=== PATIENT | male | born 1980 | race Caucasian/White ===

== ENCOUNTER 2017-04-24 20:40 | Emergency (ER) | payer BC ==
[~2017-04-24] VITALS: Ht 190.5 cm; Wt 170.6 kg
[2017-04-24 21:30] VITALS: BP 138/86
== END 2017-04-24 21:30 | disposition home or self-care (01) ==
LOC: ED 20:40
DX: F41.9 Anxiety disorder, unspecified (principal)

== ENCOUNTER 2017-06-03 02:34 | Emergency (ER) | payer BC ==
[2017-06-03 05:58] VITALS: BP 115/88
== END 2017-06-03 05:58 | disposition home or self-care (01) ==
LOC: ED 02:34
DX: M54.5 Low back pain (principal)
CPT/HCPCS: J1885; J2270

== ENCOUNTER 2017-08-29 21:53 | Emergency (ER) | payer BC ==
[~2017-08-29] VITALS: Ht 190.5 cm; Wt 173.7 kg
[2017-08-29 22:06] VITALS: Ht 190.5 cm; Wt 173.7 kg
[2017-08-30 00:50] VITALS: BP 145/80
== END 2017-08-30 00:15 | disposition home or self-care (01) ==
LOC: ED 21:53
DX: J45.901 Unspecified asthma with (acute) exacerbation (principal); J11.1 Influenza due to unidentified influenza virus with other respiratory manifestations